=== PATIENT | male | born 1970 | race Two or more races ===

== ENCOUNTER 2022-12-09 18:48 | Inpatient (IN) | payer BC ==
[~2022-12-09] VITALS: Ht 180.3 cm; Wt 93.4 kg
[2022-12-09 20:15] LABS: BASOPHILS % 0.2 % (0.0-2.0); EOSINOPHILS % 1.9 % (0.0-5.0); HEMOGLOBIN. 13.7 g/dL (14.0-18.0); LYMPHOCYTES % 17.9 % (20.0-50.0); MEAN CORPUSCULAR HEMOGLOBIN 28.2 pg (28.0-32.0); MEAN CORPUSCULAR VOLUME 86.2 fL (80.0-94.0); MEAN PLATELET VOLUME 9.5 fl (7.4-10.4); MONOCYTES % 6.1 % (2.0-8.0); NEUTROPHILS % 73.9 % (40.0-76.0); PLATELET 255 x1000/uL (130-400); RED BLOOD CELL COUNT 4.88 mill/uL (4.7-6.1); RED CELL DISTRIBUTION WIDTH 13.3 % (11.6-14.6)
[2022-12-09 20:23] LABS: CHLORIDE 104 mEq/L (98-107)
[2022-12-09 22:31] LABS: CLARITY URINE CLEAR (CLEAR); COLOR URINE YELLOW (YELLOW); KETONES URINE 2+ (NEGATIVE); LEUKOCYTE ESTERASE URINE NEGATIVE (NEGATIVE); NITRITE URINE NEGATIVE (NEGATIVE); OCCULT BLOOD URINE NEGATIVE (NEGATIVE); PH URINE 5.5 (4.5-8.0); PROTEIN URINE 2+ (NEGATIVE)
[2022-12-10] MEDS ORDERED: ASPIRIN 325MG TABLET PO ONE (00:15)
[2022-12-10] MEDS ORDERED: CLONIDINE 0.1MG TABLET PO PRN (02:45)
[2022-12-10] MEDS ORDERED: IPRATROPIUM/ALBUTEROL 0.5-3(2.5)MG/3ML NEB HHN PRN (02:45)
[2022-12-10] MEDS ORDERED: HYDROCODONE/ACETAMINOPHEN 10/325MG TABLET PO PRN (02:45)
[2022-12-10] MEDS ORDERED: HYDROCODONE/ACETAMINOPHEN 5/325MG TABLET PO PRN (02:45)
[2022-12-10] MEDS ORDERED: ACETAMINOPHEN 325MG TABLET PO PRN ×2 (02:45)
[2022-12-10] MEDS ORDERED: SODIUM CHLORIDE 0.45% 1,000 ML IV ONE (03:00)
[2022-12-10 03:45] LABS: PHOSPHORUS 3.5 mg/dL (2.5-4.9); T4 FREE 1.01 ng/dL (0.76-1.46)
[2022-12-10 03:50] LABS: FOLIC ACID (FOLATE) SERUM 15.3 ng/mL (>5.38)
[2022-12-10 05:10] LABS: HEPATITIS B SURFACE ANTIGEN NEGATIVE
[2022-12-10 05:11] LABS: ETHANOL BLOOD < 10 mg/dL
[2022-12-10] MEDS: PANTOPRAZOLE 40MG DR TABLET PO SCH (07:50)
[2022-12-10] MEDS ORDERED: NALOXONE HCL 0.4MG/ML VIAL IV PRN (08:00)
[2022-12-10] MEDS ORDERED: ENOXAPARIN 40MG/0.4ML SYR SUBCUT SCH (09:00)
[2022-12-10] MEDS ORDERED: ENOXAPARIN 80MG/0.8ML SYR SUBCUT NR (09:00)
[2022-12-10] MEDS: ASPIRIN 81MG TABLET PO SCH (09:11)
[2022-12-10 09:28] VITALS: BP 122/82
[2022-12-10 09:29] VITALS: BP 122/82
[2022-12-10 09:35] LABS: T4 FREE 0.89 ng/dL (0.76-1.46)
[2022-12-10] MEDS ORDERED: BICT1TAB PO (09:47)
[2022-12-10 10:30] LABS: BASOPHILS % 0.5 % (0.0-2.0); EOSINOPHILS % 2.9 % (0.0-5.0); HEMATOCRIT. 38.4 % (42.0-52.0); HEMOGLOBIN. 12.4 g/dL (14.0-18.0); LYMPHOCYTES % 21.5 % (20.0-50.0); MEAN CORPUSCULAR HEMOGLOBIN 27.9 pg (28.0-32.0); MEAN CORPUSCULAR VOLUME 86.1 fL (80.0-94.0); MEAN PLATELET VOLUME 10.2 fl (7.4-10.4); MONOCYTES % 9.3 % (2.0-8.0); NEUTROPHILS % 65.8 % (40.0-76.0); PLATELET 241 x1000/uL (130-400); RED BLOOD CELL COUNT 4.46 mill/uL (4.7-6.1); RED CELL DISTRIBUTION WIDTH 13.4 % (11.6-14.6)
[2022-12-10 10:37] LABS: CHLORIDE 107 mEq/L (98-107)
[2022-12-10 10:53] LABS: PHOSPHORUS 2.9 mg/dL (2.5-4.9)
[2022-12-10 11:35] VITALS: BP 102/70
[2022-12-10 16:00] VITALS: BP 101/59
[2022-12-10 17:46] LABS: CREATINE KINASE MB FRACTION 5.4 ng/mL (0.5-3.6)
[2022-12-10 19:51] LABS: INR 1.2; PROTHROMBIN TIME 12.3 sec (9.6-11.0)
[2022-12-10 20:00] VITALS: BP 107/67
[2022-12-10] MEDS: ENOXAPARIN 100MG/ML SYR SUBCUT SCH (21:26)
[2022-12-11] VITALS: BP 101/62
[2022-12-11 00:10] LABS: CREATINE KINASE MB FRACTION 3.6 ng/mL (0.5-3.6)
[2022-12-11 04:00] VITALS: BP 103/54
[2022-12-11 08:00] VITALS: BP 103/58
[2022-12-11] MEDS: ENOXAPARIN 100MG/ML SYR SUBCUT SCH ×2 (09:37→20:59)
[2022-12-11] MEDS: ASPIRIN 81MG TABLET PO SCH (09:37)
[2022-12-11] MEDS: PANTOPRAZOLE 40MG DR TABLET PO SCH (09:37)
[2022-12-11 12:00] VITALS: BP 117/53
[2022-12-11] MEDS: SODIUM CHLORIDE 0.9% 500 ML IV SCH ×2 (13:45→21:00)
[2022-12-11 16:00] VITALS: BP_SYST 113; BP_SYST 117; BP_DIAS 53; BP_DIAS 60
[2022-12-11 20:00] VITALS: BP 101/64
[2022-12-12] VITALS: BP 94/70
[2022-12-12] MEDS: SODIUM CHLORIDE 0.9% 500 ML IV SCH ×2 (03:05→10:05)
[2022-12-12 04:00] VITALS: BP 95/60
[2022-12-12 06:28] LABS: BASOPHILS % 0.7 % (0.0-2.0); HEMATOCRIT. 35.7 % (42.0-52.0); LYMPHOCYTES % 31.8 % (20.0-50.0); MEAN CORPUSCULAR HEMOGLOBIN 28.6 pg (28.0-32.0); MEAN CORPUSCULAR VOLUME 85.1 fL (80.0-94.0); MONOCYTES % 8.3 % (2.0-8.0); NEUTROPHILS % 55.2 % (40.0-76.0); PLATELET 233 x1000/uL (130-400); RED CELL DISTRIBUTION WIDTH 13.2 % (11.6-14.6)
[2022-12-12] MEDS ORDERED: FAMOTIDINE 20MG TABLET PO SCH (07:40)
[2022-12-12 08:00] VITALS: BP 99/60
[2022-12-12] MEDS: ASPIRIN 81MG TABLET PO SCH (10:04)
[2022-12-12] MEDS: ENOXAPARIN 100MG/ML SYR SUBCUT SCH (10:05)
[2022-12-12] MEDS ORDERED: ASPI-1160 PO ×2 (11:44)
[2022-12-12] MEDS ORDERED: APIX5TAB PO (11:44)
[2022-12-12 12:00] VITALS: BP 111/73
[2022-12-12 12:55] VITALS: BP 111/73
== END 2022-12-12 14:20 | disposition home or self-care (01) | DRG 281 ==
LOC: ER 18:48 → MICUSO 12-10 01:33 → EDBEDREQ 12-10 01:34 → 7WST 12-10 09:19
PROVIDERS: ADMIT Internal Medicine; ATTEND Internal Medicine
DX: I21.4 Non-ST elevation (NSTEMI) myocardial infarction (principal); D68.59 Other primary thrombophilia; I82.432 Acute embolism and thrombosis of left popliteal vein; D50.9 Iron deficiency anemia, unspecified; E78.5 Hyperlipidemia, unspecified; N28.1 Cyst of kidney, acquired; D63.8 Anemia in other chronic diseases classified elsewhere; D64.89 Other specified anemias; I27.20 Pulmonary hypertension, unspecified; R32 Unspecified urinary incontinence; H53.2 Diplopia; I07.1 Rheumatic tricuspid insufficiency; Z79.01 Long term (current) use of anticoagulants; Z79.82 Long term (current) use of aspirin; N18.9 Chronic kidney disease, unspecified
CPT/HCPCS: 36415; 71045; 76770; 78580; 80048; 80053; 80061; 80320; 81003; 82550; 82553; 82607; 82728; 82746; 83036; 83540; 83550; 83735; 83880; 84100; 84439; 84443; 84481; 84484; 85025; 85379; 86705; 86709; 86803; 87340; 93005; 93306; 93880; 93970; 99291; J1650; J7030; G0480